=== PATIENT | female | born 1995 | race Caucasian/White ===

== ENCOUNTER 2018-03-03 07:27 | Inpatient (IN) | payer OTHER ==
[2018-03-03] MEDS ORDERED: miSOPROStol 100 MCG TAB VAG PRN (14:55)
[2018-03-03] MEDS ORDERED: METHYLERGONOVINE 0.2MG/ML AMP IM PRN (15:11)
[2018-03-03] MEDS ORDERED: PROMETHAZINE 25 MG/ML VIAL IV PRN (15:11)
[2018-03-03] MEDS ORDERED: BUTORPHANOL 1 MG/ML INJ IV PRN (15:11)
[2018-03-03] MEDS ORDERED: CARBOPROST TROME 250 MCG/ML IM PRN (15:11)
[2018-03-03] MEDS ORDERED: Ringers Lactate 1,000 ML IV PRN (15:11)
[2018-03-03 15:39] LABS: Urine Appearance CLOUDY; Urine Bilirubin NEGATIVE (NEG); Urine Blood NEGATIVE (NEG); Urine Color YELLOW; Urine Glucose NEGATIVE (NEG); Urine Protein NEGATIVE (NEG); Urine Specific Gravity 1.015 (1.005-1.030); Urine Urobilinogen 0.2 mg/dL (0.2-1.0)
[2018-03-03 15:41] LABS: Basophils % 0.4 % (0-1.3); Eosinophils % 0.8 % (0-4.4); Hematocrit 30.5 % (36.0-45.0); MCH 27.6 pg (27.0-35.0); MCV 83.1 fL (80-100); MPV 10.1 fL (7.6-11.3); Monocytes % 11.1 % (3.3-12.3); RBC Red Blood Cell Count 3.67 M/uL (3.86-4.86)
[2018-03-03 15:42] LABS: RPR Titer ND
[2018-03-03 15:53] LABS: Urine Microscopic Reflex ORDER UMIC
[2018-03-03 15:54] LABS: Urine RBC <5 /HPF (NONE SEEN)
[2018-03-03 15:55] LABS: Urine Bacteria 20-50 /HPF (<20); Urine Culture Reflex Order REFLEXED
[2018-03-03] MEDS ORDERED: ZOLPIDEM TARTRATE 10 MG TABLET PO ONE (15:57)
[2018-03-03] MEDS ORDERED: OXYTOCIN/LR 20 UNIT/1,000 ML BAG IV SCH (16:00)
[2018-03-03] MEDS ORDERED: Ringers Lactate 1,000 ML IV SCH (16:00)
[2018-03-03] MEDS ORDERED: PROMETHAZINE 25 MG/ML VIAL IM ONE (16:01)
[2018-03-03 16:09] VITALS: BMI 34.2
--- NOTE | 2018-03-03 18:45 | PREOPHP ---
Date of Admission: 03/03/2018 This is a 22-year-old 2, para 1, history of oligohydramnios with her first , had to be induced, used Cervidil at that time and then regular induction and had a routine uncomplicated del brittany. She has been seen in consultation with Dr. Daniele Casarez who suggested delivery between 37 and 38 weeks. The patient is 37 weeks and 2-3 days at this point. Yesterday had an ultrasound that demo nstrated low amniotic fluid levels below normal. It was decided at the patient's request to proceed with induction at this point. She knows that some people respond better to medications when they are further along in the , at 37 weeks and 2 days, she may not respond as well as she would say a week from now, but wishes to proceed at this time. Baby looks good on the monitor. Vital signs a re all stable. She is 1 cm, cervix is posterior, the baby is vertex, -1 to -2 station and fairly wel l applied to the cervix. 50 mcg of Cytotec inserted, we will insert every 4 hours up to 6 total dose s. If rupture of membranes occurs, we will stop and then proceed with Pitocin. She knows that if sh e does not respond to this medication, then we will have to discuss tomorrow whether we can keep raheem g with Cytotec or whether we switch to oxytocin or proceed with if she has shown no cervical change during the next 12 to 24 hours. Full admission talk given. MELINA/CHELLY Voice ID: [id number]
[2018-03-04 01:38] LABS: RPR (Rapid Plasma Reagin) NON-REACT (NON-REACT)
[2018-03-04] MEDS ORDERED: PROMETHAZINE 25 MG/ML VIAL ONE (06:43)
[2018-03-04] MEDS ORDERED: ROPIVACAINE HCL 100 ML IV PRN ×2 (07:55→19:29)
[2018-03-04] MEDS ORDERED: ROPIVACAINE HCL 2 MG/ML 100ML IV ONE ×2 (07:57→19:32)
[2018-03-04] MEDS ORDERED: FENTANYL CITR 100 MCG/2 ML IV ONE ×2 (07:57→19:29)
[2018-03-04] MEDS ORDERED: ROPIVACAINE HCL 20 ML ONE (08:56)
[2018-03-04] MEDS ORDERED: ROPIVACAINE HCL 0.2% 20ML AMP IV ONE (09:00)
[2018-03-04] MEDS ORDERED: CARBOPROST TROME 250 MCG/ML IM ONE (11:04)
[2018-03-04] MEDS ORDERED: METHYLERGONOVINE 0.2MG/ML AMP IM ONE (11:04)
[2018-03-04] MEDS ORDERED: LIDOCAINE 1% MPF 30 ML VIAL ONE (11:05)
[2018-03-04] MEDS ORDERED: MEPERIDINE HCL 25 MG/0.5 ML ONE (11:06)
[2018-03-04] MEDS ORDERED: IBUPROFEN 200 MG TAB PO PRN (11:21)
[2018-03-04] MEDS ORDERED: METHYLERGONOVINE 0.2 MG TAB PO PRN (11:21)
[2018-03-04] MEDS ORDERED: Oxycodone HCl/Acetaminophen 1 TAB TAB PO PRN ×2 (11:21)
[2018-03-04] MEDS ORDERED: ACETAMINOPHEN 500 MG TAB PO PRN (11:21)
[2018-03-04] MEDS ORDERED: BISACODYL 10 MG RECTAL SUPP RECT PRN (11:21)
[2018-03-04] MEDS ORDERED: DIPHENHYDRAMINE 25 MG TAB/CAP PO PRN (11:21)
[2018-03-04] MEDS ORDERED: DOCUSATE NA/SENNA CONC 1 TAB PO PRN (11:21)
[2018-03-04] MEDS ORDERED: OXYTOCIN/LR 20 UNIT/1,000 ML BAG IV SCH (12:00)
--- NOTE | 2018-03-04 12:04 | PN ---
The patient has had 3 intravaginal doses of Cytotec. She is bk very regularly. She has had 1 dose of Stadol IV, Phenergan IM. She is now 2.5 cm, 50% to 60% effaced, vertex, well applied -1 s tation. Rupture of membranes, clear fluid. Anticipate more rapid progress from this point forward. Patient says that when she gets to 4 cm, she wants the epidural and that should be quite appropriate . Anticipate delivery later today. MELINA/CHELLY Voice ID: [id number] Report ID: [id number]
--- NOTE | 2018-03-04 12:16 | DN ---
Surgeon: Rambo Hewitt MD A 22-year-old 2, para 1, history of oligohydramnios and early delivery with the first pregnan cy; same history with this . Last ultrasound this week demonstrated oligohydramnios. It wa s decided to bring patient in for Cytotec induction. Three Cytotec doses intravaginally, 50 mcg were given. The patient went to a very active labor. This morning, she was 2.5 cm, rupture of membranes , clear fluid, went rapidly to complete. Second stage of 15 to 20 minutes or less. Spontaneous vagi nal delivery of an estimated 6 pound plus male infant. Apgars 9 and 9. Loose nuchal cord. Schultze delivery of the placenta was inspected and noted to be intact and normal. Mild uterine hypotonus, 0 .2 mg of Methergine IM, as well as IV drip Pitocin. Estimated blood loss 450 cc. Rh positive, immun e to Rubella. Negative beta strep screen. Tolerated all procedures well. Final Diagnoses: Intrauterine gestation, 37 weeks 3 days, oligohydramnios, Cytotec induction, vagina l delivery. Mild uterine hypotonus. Nuchal cord x1. NBC/MODL Voice ID: [id number] Report ID: [id number]
[2018-03-05] MEDS ORDERED: Ringers Lactate 1,000 ML IV ONE ×3 (01:33→08:55)
[2018-03-05] MEDS ORDERED: MEASLES,MUMPS,RUBELLA VAC 0.5ML SQVAC ONE (10:34)
[2018-03-05 11:39] VITALS: BP 106/53; TEMP 98.8
[2018-03-05 19:32] LABS: HBsAG Nonreactive (Nonreactive)
--- NOTE | 2018-03-06 03:21 | DS ---
Date of Discharge: 03/05/2018 Hospital Course: A 22-year-old, 2, para 1, previous history of oligohydramnios. Same diagno sis with this , seen by Dr. Daniele Casarez who suggested delivery between 37 and 38 weeks. Las t ultrasound prior to admission showed oligohydramnios, and it was decided to proceed with induction. Cervix was unfavorable, so Cytotec was used, 3 doses, 50 mcg, intravaginally every 6 hours, resulte d in good strong labor. Rupture of membranes at 2.5 to 3 cm, clear fluid. The patient went rapidly to complete. Epidural anesthesia. Delivery of a 6 pound 10 ounce male infant, Apgars 9 and 9. No episiotomy. No laceration. Griffiths delivery of the placenta. Mild uterine hypotonous, 450 cc estim ate. 0.2 mg of Methergine as well as IV drip Pitocin. Rh positive, immune to Rubella. Negative bet a strep status. ; afebrile, ambulating, and voiding. Lochia is normal. Will be dismissed later today to report back to my office in 6 weeks for followup, to report any temperature elevation of 100 degrees or greater, severe pain, heavy bleeding, or any other type of abnormalities. At her request, dismissed with tramadol; she knows this does go to the breast milk. No post epidural proble ms. Loose nuchal cord x1 noted at the time of delivery. Final Diagnoses: Intrauterine gestation, 37 weeks 3 days, oligohydramnios, Cytotec for labor inducti on, vaginal delivery. Loose nuchal cord. Mild uterine hypotonus. MELINA/MODL Voice ID: [id number] Report ID: [id number]
== END 2018-03-05 13:35 | disposition home or self-care (01) | DRG 807 ==
LOC: 2ND-WC 14:34
PROVIDERS: ADMIT Specialist; ATTEND Specialist
PROC: 10E0XZZ Delivery of Products of Conception, External Approach (ICD-10-PCS; principal; 2018-03-04)
PROC: 3E0P7VZ Introduction of Hormone into Female Reproductive, Via Natural or Artificial Opening (ICD-10-PCS; 2018-03-04)
DX: O41.03X0 Oligohydramnios, third trimester, not applicable or unspecified (principal); Z37.0 Single live birth; Z3A.37 37 weeks gestation of pregnancy; O62.0 Primary inadequate contractions; O69.81X0 Labor and delivery complicated by cord around neck, without compression, not applicable or unspecified
CPT/HCPCS: 36415; 76819; 81003; 81015; 85025; 86592; 86850; 86900; 86901; 87086; 87088; 87340; 90707; J0595; J2175; J2210; J2550; J2590; J2795; J3010

== ENCOUNTER 2024-09-17 21:29 | Emergency (ER) | payer OTHER, SELFPAY ==
[2024-09-17] MEDS ORDERED: NA CHLORIDE 0.9% 1,000 ML ONE (21:54)
[2024-09-17 22:18] LABS: Absolute Basophils 0.1 K/uL (0-0.5); Absolute Eosinophils 0.3 K/uL (0-0.5); Absolute Monocytes 0.6 K/uL (0.1-1.3); Absolute Neutrophil 3.3 K/uL (1.8-8.0); Basophils % 1.2 % (0-1.3); Hematocrit 36.8 % (36.0-45.0); Hemoglobin 12.9 g/dL (12.0-15.0); MCH 30.5 pg (27.0-35.0); MCHC 35.1 g/dL (32.0-36.0); MCV 86.9 fL (80-100); MPV 9.1 fL (7.6-11.3); Monocytes % 8.7 % (3.3-12.3); Neutrophils % 45.1 % (41.7-73.7); Nucleated Red Blood Cells % 0.1 % (0-0); Platelets 342 thou/uL (152-406); RBC Red Blood Cell Count 4.24 M/uL (3.86-4.86); Red Cell Distribution Width 13.6 % (12.1-15.2)
[2024-09-17 22:25] LABS: PT Prothrombin Time 12.5 SECONDS (10-13.0); Protime INR 1.1
--- NOTE | 2024-09-17 22:36 | RAD REPORT ---
EXAMINATION: US bilateral LOWER EXTREMITY VENOUS DOPPLER CLINICAL INDICATION: Leg pain TECHNIQUE: Sonographic evaluation of the veins of the lower extremity bilaterally formed.Grayscale, c olor and spectral analysis performed on all vessels COMPARISON: No prior exam. FINDINGS: The common femoral, superficial femoral, greater saphenous, popliteal and posterior tibial veins bila terally are compressible and demonstrate augmentation. Doppler demonstrates good flow. IMPRESSION: No evidence of deep venous thrombosis involving either lower extremity
[2024-09-17 22:46] LABS: ALT/SGPT 35 U/L (13-56); AST/SGOT 14 U/L (15-37); Alkaline Phosphatase 81 U/L (45-117); Anion Gap 11.4 mEq/L (5.0-15.0); BUN Blood Urea Nitrogen 13 mg/dL (7-18); Bicarbonate 24 mEq/L (21-32); Bilirubin Total 0.2 mg/dL (0.2-1.0); Glomerular Filtration Rate 74 ml/min (=/>90); Glucose Level 104 mg/dL (74-106); NT PRO-BNP 24 pg/mL (<125); Potassium 3.4 mEq/L (3.5-5.1); Sodium Level 136 mEq/L (136-145)
--- NOTE | 2024-09-17 22:48 | RAD REPORT ---
Procedure: Chest Single View HISTORY: Shortness of breath COMPARISON: none FINDINGS: The lungs appear clear of acute infiltrate. No significant pleural effusion noted. The heart is normal size. IMPRESSION: No acute abnormality is displayed.
[2024-09-17 22:54] LABS: Bilirubin Direct < 0.2 mg/dL (0-0.2); Troponin High Sensitivity < 3.0 pg/mL (<58.9)
--- NOTE | 2024-09-18 00:12 | RAD REPORT ---
EXAM DESCRIPTION: Abdomen Pelvis W Contrast CLINICAL HISTORY: 29 years Female Abdomen pain. COMPARISON: None. TECHNIQUE: Images were obtained in axial, coronal and sagittal planes. Intravenous contrast was administrated. T his exam was performed according to our departmental dose-optimization program which includes use of Automated Exposure Control, adjustment of the mA and/or kV according to patient size and/or use of iterative reconstruction technique. FINDINGS: No abnormality involving the liver, is clean, pancreas, or adrenal glands bilaterally. Contracted gal lbladder. No obstructing renal or ureteral calculi bilaterally. No hydronephrosis bilaterally. Unremarkable ria dder. Anteverted uterus. Right ovarian enlargement versus mildly distended fluid-filled bowel loops right adnexa. Appendix within normal limits. Moderate constipation right colon. No bowel obstruction, perforation, or inflammation. No abnormality of the abdominal aorta or portal vein. No adenopathy or abnormal fluid collections see n. No acute osseous abnormality. Bilateral breast implants. No abnormality lower lungs bilaterally. IMPRESSION: 1. Right ovarian enlargement versus mildly distended fluid-filled bowel loops right adnexa. Correla tion with pelvic ultrasound suggested for further characterization. 2. Otherwise unremarkable study. Appendix within normal limits. Electronically signed by: Charley Alcazar MD 09/18/2024 12:07 AM CDT Due to temporary technical issues with the [employer] reporting system, reports are being ihsan d by the in-house radiologist without review as a courtesy to ensure prompt reporting the interpreting radiologist is fully responsible for the content of the report. Transcribed Date/Time: 09/18/2024 12:12 AM
--- NOTE | 2024-09-18 00:14 | RAD REPORT ---
EXAM DESCRIPTION: Chest For Pe Angio CLINICAL HISTORY: 29 years Female Chest pain, dyspnea. COMPARISON: None. TECHNIQUE: Images were obtained in axial, coronal and sagittal planes. Intravenous contrast was administrated. 3 -D MIP imaging was performed. This exam was performed according to our departmental dose-optimization program which includes use of Automated Exposure Control, adjustment of the mA and/ or kV according to patient size and/or use of iterative reconstruction technique. FINDINGS: No filling defects pulmonary arteries bilaterally. No aortic dissection or dilatation. No right heart strain. No pericardial or pleural effusions bilaterally. No adenopathy. No lung parenchymal infiltrates or nodules seen. No pneumothorax. No abnormality upper abdomen. Bilateral breast implants. No acute osseous abnormality. IMPRESSION: No evidence for pulmonary embolus. No aortic dissection or dilatation. No infiltrates seen. Electronically signed by: Charley Alcazar MD 09/18/2024 12:10 AM CDT RP Due to temporary technical issues with the [employer] reporting system, reports are being ihsan d by the in-house radiologist without review as a courtesy to ensure prompt reporting the interpreting radiologist is fully responsible for the content of the report. Transcribed Date/Time: 09/18/2024 12:14 AM
[2024-09-18] MEDS ORDERED: POTASSIUM 25 MEQ EFFERV TAB ONE (00:27)
--- NOTE | 2024-09-18 00:28 | ER ---
Nurse's Notes [facility] Name: Desiree Aguilar Age: 29 yrs Sex: Female : 1995 Arrival Date: 09/17/2024 Time: 21:29 Bed 6 Private MD: Diagnosis: Chest pain on breathing;Chest pain, unspecified;Dyspnea;Hypokalemia Presentation: 09/17 21:50 Chief complaint: Patient states: I had a breast augmentation and a tummy tuck that was kd3 done on August 31. I had some palpitations today but i didn't think anything of it. I took my faja off and felt like i couldn't breath this evening. Coronavirus screen: Vaccine status: Patient reports receiving the 2nd dose of the covid vaccine. Ebola Screen: No symptoms or risks identified at this time. 21:50 Method Of Arrival: Ambulatory kd3 21:52 Initial Sepsis Screen: Does the patient meet any 2 criteria? No. Patient's initial kd3 sepsis screen is negative. Does the patient have a suspected source of infection? No. Patient's initial sepsis screen is negative. Risk Assessment: Do you want to hurt yourself or someone else? Patient reports no desire to harm self or others. Onset of symptoms was September 17, 2024. 21:52 Acuity: JORDAN 3 kd3 Triage Assessment: 21:52 General: Appears uncomfortable, Behavior is anxious, crying. Pain: Denies pain. kd3 Respiratory: Reports shortness of breath at rest Onset: The symptoms/episode began/occurred today, the patient has moderate shortness of breath. 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 - Infectious Disease History:: Denies. - Social history:: Smoking status: Patient denies any tobacco usage or history of. Screenin:33 [facility] ED Fall Risk Assessment (Adult) History of falling in the last 3 months, bm8 including since admission No falls in past 3 months (0 pts) Confusion or Disorientation No (0 pts) Intoxicated or Sedated No (0 pts) Impaired Gait No (0 pts) Mobility Assist Device Used No (0 pt) Altered Elimination No (0 pt) Score/Fall Risk Level 0 - 2 = Low Risk Oriented to surroundings, Maintained a safe environment, Educated pt \T\ family on fall prevention, incl call for assistance when getting out of bed, Assessed \T\ reinforced patient's understanding of fall precautions, Hourly rounding (assess needs \T\ fall precautionary measures) done, Used ambulatory aids as needed (educated on \T\ assisted with), Used gait belt as appropriate. Abuse screen: Denies threats or abuse. Nutritional screening: No deficits noted. Tuberculosis screening: No symptoms or risk factors identified. Assessment: 22:34 Reassessment: Patient and/or family updated on plan of care and expected duration. Pain ha1 level reassessed. Patient is alert, oriented x 3, equal unlabored respirations, skin warm/dry/pink. Patient states feeling better. Patient states symptoms have improved. 23:33 Reassessment: Patient appears in no apparent distress at this time. Patient and/or bm8 family updated on plan of care and expected duration. Pain level reassessed. Patient is alert, oriented x 3, equal unlabored respirations, skin warm/dry/pink. Patient denies pain at this time. Patient states feeling better. Patient states symptoms have improved. General: Appears in no apparent distress. comfortable, Behavior is calm, cooperative. Pain: Denies pain. Cardiovascular: Denies chest pain, Heart tones S1 S2 present Capillary refill < 3 seconds in bilateral fingers Patient's skin is warm and dry. Rhythm is sinus rhythm. Respiratory: Airway is patent Respiratory effort is even, unlabored, Respiratory pattern is regular, symmetrical, Breath sounds are clear bilaterally. GI: No signs and/or symptoms were reported involving the gastrointestinal system. : No signs and/or symptoms were reported regarding the genitourinary system. EENT: No signs and/or symptoms were reported regarding the EENT system. Derm: No signs and/or symptoms reported regarding the dermatologic system. Musculoskeletal: No signs and/or symptoms reported regarding the musculoskeletal system. Vital Signs: 21:51 BP 132 / 89; Pulse 116; Resp 22; Temp 98.3(O); Pulse Ox 100% ; Weight 69.8 kg; kd3 22:45 BP 118 / 77; Pulse 76; Resp 17 S; Pulse Ox 100% on 2 lpm NC; ha1 23:33 BP 101 / 76; Pulse 73; Resp 18; Temp 98.3; Pulse Ox 99% on 2 lpm NC; Pain 0/10; bm8 23:33 Pain Scale: Adult bm8 Bascom Coma Score: 23:33 Eye Response: spontaneous(4). Motor Response: obeys commands(6). Verbal Response: bm8 oriented(5). Total: 15. ED Course: 21:33 Patient arrived in ED. gm2 21:40 Nimesh Minaya MD is Attending Physician. carroll 21:50 Edmond Kathleen, RN is Primary Nurse. bm8 21:51 Arm band placed on. kd3 21:52 Triage completed. kd3 22:18 US Extremity Venous W Compression Arnold In Process Unspecified. EDMS 22:23 XRAY Chest (1 view) In Process Unspecified. EDMS 22:31 Basic Metabolic Panel Sent. ha1 22:31 LFT's Sent. ha1 22:31 Magnesium Sent. ha1 22:31 NT PRO-BNP Sent. ha1 22:31 Troponin HS Sent. ha1 22:32 EKG done, by ED staff, reviewed by Nimesh Minyaa MD. oe 22:59 CT Chest For PE Angio In Process Unspecified. EDMS 23:03 CT Abd/Pelvis - IV Contrast Only In Process Unspecified. EDMS 23:33 Patient has correct armband on for positive identification. Placed in gown. Bed in low bm8 position. Call light in reach. Side rails up X 1. Client placed on continuous cardiac and pulse oximetry monitoring. NIBP monitoring applied. clinical safety specialist on. Pulse ox on. NIBP on. Door closed. Noise minimized. Warm blanket given. Pillow given. Verbal reassurance given. Head of bed elevated. 23:33 No provider procedures requiring assistance completed. Inserted saline lock: 20 gauge bm8 in right antecubital area, using aseptic technique. Blood collected. Flushed with 10 mL NS. Patient maintains SpO2 saturation greater than 95% on room air. 09/18 00:35 Provided Education on: post er care. bm8 00:35 IV discontinued, intact, bleeding controlled, No redness/swelling at site. Pressure bm8 dressing applied. Administered Medications: 09/17 22:11 Drug: NS 0.9% IV 1000 ml IV at 1 bolus Per protocol; to be given as a bolus over 60 bm8 minutes Route: IV; Rate: 1 bolus; Site: right antecubital; 09/18 00:37 Follow up: Response: No adverse reaction; IV Status: Completed infusion bm8 00:34 Not Given (Patient Refused): Heparin (DVT/PE- Bolus per protocol) - [id number] units/kg bm8 IVP once; Max 8,000 units 00:34 Drug: Potassium PO Effervescent Tablet 25 mEq PO once; dissolve in 4 ounces of water or bm8 juice Route: PO; 00:34 Follow up: Response: No adverse reaction bm8 Medication: 09/17 23:33 VIS not applicable for this client. bm8 Outcome: 09/18 00:28 Discharge ordered by MD. hodges 00:34 Discharged to home ambulatory, bm8 00:34 Condition: stable 00:34 Discharge instructions given to patient, family, Instructed on discharge instructions, follow up and referral plans. Demonstrated understanding of instructions, follow-up care, medications, Prescriptions given X 1, 00:37 Patient left the ED. bm8 Signatures: Dispatcher [employer] EDMS Nimesh Minaya MD MD cha Espinosa, Orlando oe Doucette, Kyli, RN RN kd3 Lee Ann Swift, RN RN [id number] Vani Aguilar 2 Edmond Kathleen, RN RN bm8
--- NOTE | 2024-09-18 00:28 | EDPHYS ---
Physician Documentation [facility] Name: Desiree Aguilar Age: 29 yrs Sex: Female : 1995 Arrival Date: 09/17/2024 Time: 21:29 Bed 6 Private MD: ED Physician Nimesh Minaya HPI: 09/17 22:54 This 29 yrs old Female presents to ER via Ambulatory with complaints of carroll Breathing Difficulty, Chest Tightness, post surgery 3weeks. 22:54 The patient has shortness of breath at rest. Onset: The symptoms/episode began/occurred carroll just prior to arrival, today. Duration: The symptoms are continuous, and are steadily getting worse. The patient's shortness of breath is aggravated by nothing, is alleviated by nothing. Associated signs and symptoms: Pertinent positives: chest pain, non-productive cough. Severity of symptoms: At their worst the symptoms were moderate just prior to arrival. The patient has not experienced similar symptoms in the past. 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 - Infectious Disease History:: Denies. - Social history:: Smoking status: Patient denies any tobacco usage or history of. ROS: 22:56 Constitutional: Negative for fever, chills, and weight loss, Eyes: Negative for injury, carroll pain, redness, and discharge, ENT: Negative for injury, pain, and discharge, Neck: Negative for injury, pain, and swelling, Cardiovascular: Negative for chest pain, palpitations, and edema, Respiratory: Negative for shortness of breath, cough, wheezing, and pleuritic chest pain, Abdomen/GI: Negative for abdominal pain, nausea, vomiting, diarrhea, and constipation, Back: Negative for injury and pain, : Negative for injury, bleeding, discharge, and swelling, MS/Extremity: Negative for injury and deformity, Skin: Negative for injury, rash, and discoloration, Neuro: Negative for headache, weakness, numbness, tingling, and seizure, Psych: Negative for depression, anxiety, suicide ideation, homicidal ideation, and hallucinations, Allergy/Immunology: Negative for hives, rash, and allergies, Endocrine: Negative for neck swelling, polydipsia, polyuria, polyphagia, and marked weight changes, Hematologic/Lymphatic: Negative for swollen nodes, abnormal bleeding, and unusual bruising, 22:56 MS/extremity: Negative for acute changes, Exam: 22:56 Constitutional: This is a well developed, well nourished patient who is awake, alert, carroll and in no acute distress. Head/Face: Normocephalic, atraumatic. Eyes: Pupils equal round and reactive to light, extra-ocular motions intact. Lids and lashes normal. Conjunctiva and sclera are non-icteric and not injected. Cornea within normal limits. Periorbital areas with no swelling, redness, or edema. ENT: Nares patent. No nasal discharge, no septal abnormalities noted. Tympanic membranes are normal and external auditory canals are clear. Oropharynx with no redness, swelling, or masses, exudates, or evidence of obstruction, uvula midline. Mucous membranes moist. Neck: Trachea midline, no thyromegaly or masses palpated, and no cervical lymphadenopathy. Supple, full range of motion without nuchal rigidity, or vertebral point tenderness. No Meningismus. Chest/axilla: Normal chest wall appearance and motion. Nontender with no deformity. No lesions are appreciated. Cardiovascular: Regular rate and rhythm with a normal S1 and S2. No gallops, murmurs, or rubs. Normal PMI, no JVD. No pulse deficits. Respiratory: Lungs have equal breath sounds bilaterally, clear to auscultation and percussion. No rales, rhonchi or wheezes noted. No increased work of breathing, no retractions or nasal flaring. Abdomen/GI: Soft, non-tender, with normal bowel sounds. No distension or tympany. No guarding or rebound. No evidence of tenderness throughout. Back: No spinal tenderness. No costovertebral tenderness. Full range of motion. Female : Normal external genitalia. Skin: Warm, dry with normal turgor. Normal color with no rashes, no lesions, and no evidence of cellulitis. MS/ Extremity: Pulses equal, no cyanosis. Neurovascular intact. Full, normal range of motion., bilateral aka Neuro: Awake and alert, GCS 15, oriented to person, place, time, and situation. Cranial nerves II-XII grossly intact. Motor strength 5/5 in all extremities. Sensory grossly intact. Cerebellar exam normal. Normal gait. Psych: Awake, alert, with orientation to person, place and time. Behavior, mood, and affect are within normal limits. 22:56 ECG was reviewed by the Attending Physician. Vital Signs: 21:51 BP 132 / 89; Pulse 116; Resp 22; Temp 98.3(O); Pulse Ox 100% ; Weight 69.8 kg; kd3 22:45 BP 118 / 77; Pulse 76; Resp 17 S; Pulse Ox 100% on 2 lpm NC; ha1 23:33 BP 101 / 76; Pulse 73; Resp 18; Temp 98.3; Pulse Ox 99% on 2 lpm NC; Pain 0/10; bm8 23:33 Pain Scale: Adult bm8 Amari Coma Score: 23:33 Eye Response: spontaneous(4). Motor Response: obeys commands(6). Verbal Response: bm8 oriented(5). Total: 15. MDM: 21:40 Medical Screening Exam initiated carroll 22:57 Differential diagnosis: Anemia Anxiety Reaction asthma, Bronchitis CHF exacerbation, carroll Chronic Obstructive Pulmonary Disease abnormal EKG, acute myocardial infarction, acute pericarditis, anxiety, coronary artery disease chest wall pain, cholecystitis, Cholelithiasis costochondritis, esophagitis, gastritis, gastroesophageal reflux disease (GERD), herpes zoster, pancreatitis, peptic ulcer disease, pericarditis, pleurisy, pneumonia, pneumothorax, pulmonary embolus, stable angina, thoracic aortic disection, unstable angina, Myocardial Infarction pneumonia, Pneumothorax pulmonary edema, Pulmonary Embolism reactive airway disease, Unstable Angina. Antibiotic administration: Not indicated. Immunization status:. Data reviewed: vital signs, nurses notes, lab test result(s), EKG, radiologic studies, CT scan, plain films. Consideration of Admission/Observation Escalation of care including admission/observation considered. I considered the following discharge prescriptions or medication management in the emergency department Medications were administered in the Emergency Department. See JUL. 09/17 21:46 Order name: Basic Metabolic Panel; Complete Time: 00:23 [facility] 09/17 21:46 Order name: CBC with Diff; Complete Time: 22:54 [facility] 09/17 21:46 Order name: LFT's; Complete Time: 00:23 [facility] 09/17 21:46 Order name: Magnesium; Complete Time: 00:23 [facility] 09/17 21:46 Order name: NT PRO-BNP; Complete Time: 00:23 [facility] 09/17 21:46 Order name: PT-INR; Complete Time: 22:54 [facility] 09/17 21:46 Order name: Troponin HS; Complete Time: 00:23 [facility] 09/17 21:46 Order name: XRAY Chest (1 view); Complete Time: 22:54 [facility] 09/17 21:46 Order name: US Extremity Venous W Compression Arnold; Complete Time: 22:54 [facility] 09/17 21:46 Order name: CT Chest For PE Angio [facility] 09/17 22:03 Order name: CT Abd/Pelvis - IV Contrast Only [facility] 09/17 21:46 Order name: Cardiac monitoring; Complete Time: 22:11 [facility] 09/17 21:46 Order name: EKG - Nurse/Tech; Complete Time: 22:30 [facility] 09/17 21:46 Order name: IV Saline Lock; Complete Time: 22:11 [facility] 09/17 21:46 Order name: Labs collected and sent; Complete Time: 22:11 [facility] 09/17 21:46 Order name: O2 Per Protocol; Complete Time: 22:11 [facility] 09/17 21:46 Order name: O2 Sat Monitoring; Complete Time: 22:11 [facility] 09/17 21:46 Order name: Misc. Order: bed rest; Complete Time: 22:11 [facility] EC:56 Rate is 81 beats/min. Rhythm is regular. QRS [place] is Normal. IA interval is normal. QRS carroll interval is normal. QT interval is normal. No Q waves. T waves are Normal. No ST changes noted. Clinical impression: Normal ECG and No evidence of ischemia. Interpreted by me. Reviewed by me. Administered Medications: 22:11 Drug: NS 0.9% IV 1000 ml IV at 1 bolus Per protocol; to be given as a bolus over 60 bm8 minutes Route: IV; Rate: 1 bolus; Site: right antecubital; 09/18 00:37 Follow up: Response: No adverse reaction; IV Status: Completed infusion bm8 00:34 Not Given (Patient Refused): Heparin (DVT/PE- Bolus per protocol) - [id number] units/kg bm8 IVP once; Max 8,000 units 00:34 Drug: Potassium PO Effervescent Tablet 25 mEq PO once; dissolve in 4 ounces of water or bm8 juice Route: PO; 00:34 Follow up: Response: No adverse reaction bm8 Disposition Summary: 09/18/24 00:28 Discharge Ordered Notes: Location: Home carroll Problem: new carroll Symptoms: have improved carroll Condition: Stable carroll Diagnosis - Chest pain on breathing carroll - Chest pain, unspecified carroll - Dyspnea carroll - Hypokalemia carroll Followup: carroll - With: Private Physician - When: 1 - 2 days - Reason: Recheck today's complaints, Continuance of care, Re-evaluation by your physician Discharge Instructions: - Discharge Summary Sheet carroll - Potassium Content of Foods carroll - Chest Wall Pain, [id number] carroll - Aspirin and Your Heart carroll - Hypokalemia carroll Forms: - Medication Reconciliation Form carroll - Antibiotic Education carroll - Prescription Opioid Use carroll - Patient Portal Instructions carroll - Leadership Thank You Letter carroll Prescriptions: - Protonix 40 mg Oral Tablet - take 1 tablet ORAL route once daily; 30 tablet; Refills: 0, Product Selection carroll Permitted Signatures: Dispatcher [employer] EDNimesh Burns MD MD cha Doucette, Kyli, RN RN kd3 Edmond Kathleen RN RN bm8 Corrections: (The following items were deleted from the chart) 09/17 21:47 21:47 BASIC METABOLIC PANEL+C.LAB.BRZ ordered. EDMO EDMS 21:47 21:47 CBC+H.LAB.BRZ ordered. EDMO EDMS 21:47 21:47 HEPATIC FUNCTION+C.LAB.BRZ ordered. EDMO EDMS 21:47 21:47 MAGNESIUM+C.LAB.BRZ ordered. EDMO EDMS 21:47 21:47 PROBNP+C.LAB.BRZ ordered. EDMO EDMO 21:47 21:47 PROTIME (+INR)+COAG.LAB.BRZ ordered. EDMO EDMS 21:47 21:47 Troponin High Sensitivity+C.LAB.BRZ ordered. EDMO EDMS 21:47 21:47 Test, Urine+UC.LAB.BRZ ordered. EDMO EDMS 21:47 21:47 Chest Single View+RAD.RAD.BRZ ordered. EDMO EDMS 21:47 21:47 Extrem Venous W Compression Arnold+US.RAD.BRZ ordered. EDMO EDMS 21:47 21:47 Chest For PE Angio+CT.RAD.BRZ ordered. EDMO EDMS
[2024-09-18 01:11] VITALS: TEMP 98.3
[2024-09-18 01:15] VITALS: BP 101/76; O2SAT 99
--- NOTE | 2024-09-19 11:59 | EKG ---
Test Date: 2024-09-17 Test Time: 22:18:34 Au Pair: RONIT MEASUREMENT RESULTS: Intervals: Rate: 81 WY: 156 QRSD: 88 QT: 376 QTc: 436 [place]: P: 48 WY: 156 QRS: 79 T: 46 INTERPRETIVE STATEMENTS: Normal sinus rhythm Normal ECG No previous ECG available for comparison Electronically Signed On 09-19-24 11:56:53 CDT by Harpreet Whitman
== END 2024-09-18 00:37 | disposition home or self-care (01) ==
LOC: ER 21:29
DX: R07.1 Chest pain on breathing (principal); R06.00 Dyspnea, unspecified; E87.6 Hypokalemia
CPT/HCPCS: 36415; 71045; 71275; 74177; 80048; 80076; 83735; 83880; 84484; 85025; 85610; 93005; 93970; 96360; 96361; 99285; J7030; Q9967